=== PATIENT | female | born 1950 | race Caucasian/White ===

== ENCOUNTER 2018-12-01 21:20 | Emergency (ER) | payer MEDICARE ==
[~2018-12-01] VITALS: Ht 167.6 cm; Wt 113.6 kg
[2018-12-01] MEDS ORDERED: CELEBREX100 M1 PO (21:51)
[2018-12-01] MEDS ORDERED: ZESTRIL10 M1 PO (21:51)
[2018-12-01 22:22] LABS: HEMATOCRIT 42.2 % (37.0-47.0); HEMOGLOBIN 13.8 g/dl (12.0-16.0); IMMATURE GRANULOCYTES 0.3 % (0.0-5.0); MEAN CELL VOLUME 97.2 fL CALC (80.0-100.0); MEAN CORPUSCULAR HGB 31.8 pG CALC (26.0-32.0); MEAN CORPUSCULAR HGB CONC 32.7 g/L CALC (32.0-36.0); NEUT# 8.59 thou/uL (2.00-7.15); RED BLOOD COUNT 4.34 mill/uL (4.20-5.60)
[2018-12-01 22:43] LABS: ACT PARTIAL THROMBO TIME 27.1 SECONDS (20.0-32.5); D-DIMER 2.12 mg/L (0.19-0.60); INTERNATIONAL NORMALIZED RATIO 1.6 RATIO (0.7-1.3); PROTHROMBIN TIME 16.3 SECONDS (9.0-12.5)
[2018-12-01 22:46] LABS: ALBUMIN 4.7 g/dL (3.2-5.0); ANION GAP 15 (6-22 (CALC)); BILIRUBIN, TOTAL 0.7 mg/dL (0.0-1.4); BUN 12 mg/dL (8-23); BUN/CREATININE RATIO 23 (12-20 (CALC)); CARBON DIOXIDE 29 mmol/l (22-30); CHLORIDE 99 mmol/l (95-108); CREATININE 0.5 mg/dL (0.5-1.0); GFR > 60 ML/MIN (>=60 (CALC)); GFR FOR AFR.AMER. > 60 ML/MIN (>=60 (CALC)); POTASSIUM 4.2 mmol/l (3.5-5.1); SODIUM 139 mmol/l (137-146); TOTAL PROTEIN 8.5 g/dL (6.3-8.2)
[2018-12-01 22:50] LABS: ALKALINE PHOSPHATASE 125 u/l (38-126); SGOT/AST 31 u/l (9-36)
[2018-12-01 22:58] LABS: MYOGLOBIN 17 ng/mL (0 - 62)
[2018-12-01] MEDS ORDERED: PREDNISONE50 MG PO (23:53)
[2018-12-01] MEDS ORDERED: TRAMADOL HCL50 MG PO (23:53)
[2018-12-02 00:10] VITALS: BP 108/55
== END 2018-12-02 00:10 | disposition home or self-care (01) ==
LOC: ED 21:20
PROVIDERS: Family Medicine
DX: R07.81 Pleurodynia (principal); I10 Essential (primary) hypertension; Z91.013 Allergy to seafood
CPT/HCPCS: J1650

== ENCOUNTER 2018-12-05 11:27 | Observation (INO) | payer MEDICARE ==
[~2018-12-05] VITALS: Ht 170.2 cm; Wt 114.1 kg
[2018-12-05] VITALS (15 sets, daily range): BP systolic 126–179; BP diastolic 64–95
[~2018-12-05 11:27] MED LIST: CELEBREX100 M1 PO; PREDNISONE50 MG PO; TRAMADOL HCL50 MG PO; ZESTRIL10 M1 PO
[2018-12-05 13:51] LABS: ALBUMIN 4.5 g/dL (3.2-5.0); ALKALINE PHOSPHATASE 116 u/l (38-126); ANION GAP 15 (6-22 (CALC)); BUN 18 mg/dL (8-23); BUN/CREATININE RATIO 34 (12-20 (CALC)); CARBON DIOXIDE 28 mmol/l (22-30); CHLORIDE 105 mmol/l (95-108); CREATININE 0.5 mg/dL (0.5-1.0); GFR > 60 ML/MIN (>=60 (CALC)); GFR FOR AFR.AMER. > 60 ML/MIN (>=60 (CALC)); POTASSIUM 4.3 mmol/l (3.5-5.1); SGOT/AST 18 u/l (9-36); SODIUM 144 mmol/l (137-146); TOTAL PROTEIN 8.1 g/dL (6.3-8.2)
[2018-12-05 13:57] LABS: BILIRUBIN, TOTAL 0.4 mg/dL (0.0-1.4)
[2018-12-05] MEDS ORDERED: MULTIVITAMI1 PO (14:33)
[2018-12-06] VITALS (13 sets, daily range): BP systolic 114–142; BP diastolic 53–71
[2018-12-06 05:46] LABS: HEMATOCRIT 43.4 % (37.0-47.0); IMMATURE GRANULOCYTES 0.9 % (0.0-5.0); MEAN CELL VOLUME 98.4 fL CALC (80.0-100.0); MEAN CORPUSCULAR HGB 31.7 pG CALC (26.0-32.0); MEAN CORPUSCULAR HGB CONC 32.3 g/L CALC (32.0-36.0); NEUT# 5.76 thou/uL (2.00-7.15); RED BLOOD COUNT 4.41 mill/uL (4.20-5.60); RED CELL DISTRI WIDTH 13.2 % (11.5-15.5)
[2018-12-06 06:02] LABS: ALBUMIN 4.1 g/dL (3.2-5.0); ALKALINE PHOSPHATASE 112 u/l (38-126); ANION GAP 15 (6-22 (CALC)); BUN 17 mg/dL (8-23); BUN/CREATININE RATIO 32 (12-20 (CALC)); CALCULATED LDLCHOLESTEROL 81 mg/dL (62-129 (CALC)); CARBON DIOXIDE 26 mmol/l (22-30); CHLORIDE 105 mmol/l (95-108); CHOLESTEROL HDL RATIO 2.4 (<4.4 (CALC)); CREATININE 0.5 mg/dL (0.5-1.0); GFR > 60 ML/MIN (>=60 (CALC)); GFR FOR AFR.AMER. > 60 ML/MIN (>=60 (CALC)); HDL CHOLESTEROL 80 mg/dL (>=40); POTASSIUM 4.2 mmol/l (3.5-5.1); SODIUM 143 mmol/l (137-146); TOTAL CHOLESTEROL 189 mg/dl (0-199); TOTAL PROTEIN 7.2 g/dL (6.3-8.2); TOTAL TRIGLYCERIDES 140 mg/dl (30-149); VLDL CHOLESTROL 28 mg/dl (1-41 (CALC))
[2018-12-06 06:31] LABS: BILIRUBIN, TOTAL 0.6 mg/dL (0.0-1.4); SGOT/AST 34 u/l (9-36)
[2018-12-07] VITALS: BP 146/61
[2018-12-07 04:00] VITALS: BP 125/64
[2018-12-07 04:29] LABS: HEMATOCRIT 38.8 % (37.0-47.0); HEMOGLOBIN 12.4 g/dl (12.0-16.0); IMMATURE GRANULOCYTES 0.8 % (0.0-5.0); MEAN CORPUSCULAR HGB 31.6 pG CALC (26.0-32.0); NEUT# 5.28 thou/uL (2.00-7.15); RED BLOOD COUNT 3.92 mill/uL (4.20-5.60); RED CELL DISTRI WIDTH 13.5 % (11.5-15.5)
[2018-12-07 05:42] LABS: ALBUMIN 3.3 g/dL (3.2-5.0); ALKALINE PHOSPHATASE 90 u/l (38-126); ANION GAP 12 (6-22 (CALC)); BILIRUBIN, TOTAL 0.5 mg/dL (0.0-1.4); BUN 21 mg/dL (8-23); BUN/CREATININE RATIO 39 (12-20 (CALC)); CARBON DIOXIDE 25 mmol/l (22-30); CHLORIDE 105 mmol/l (95-108); CREATININE 0.5 mg/dL (0.5-1.0); GFR > 60 ML/MIN (>=60 (CALC)); GFR FOR AFR.AMER. > 60 ML/MIN (>=60 (CALC)); POTASSIUM 4.4 mmol/l (3.5-5.1); SGOT/AST 17 u/l (9-36); SODIUM 138 mmol/l (137-146); TOTAL PROTEIN 5.9 g/dL (6.3-8.2)
[2018-12-07 07:00] VITALS: BP 146/88
[2018-12-07 08:14] VITALS: BP 146/88
[2018-12-07] MEDS ORDERED: XARELTO15 MG PO (08:31)
== END 2018-12-07 10:00 | disposition home or self-care (01) ==
LOC: ICU 11:27
PROVIDERS: ADMIT Internal Medicine Geriatric Medicine; ATTEND Internal Medicine Geriatric Medicine
DX: I26.99 Other pulmonary embolism without acute cor pulmonale (principal); I10 Essential (primary) hypertension; M19.90 Unspecified osteoarthritis, unspecified site; Z91.013 Allergy to seafood
CPT/HCPCS: A9540; A9567; J1644

== ENCOUNTER 2019-08-24 15:17 | Observation (INO) | payer MEDICARE ==
[~2019-08-24] VITALS: Ht 170.2 cm; Wt 116.0 kg
[~2019-08-24 15:17] MED LIST changes: +MULTIVITAMI1 PO; +XARELTO15 MG PO
--- NOTE | 2019-08-24 15:25 | NUR ---
TO ROOM VIA EMS FOR BEDSIDE TRIAGE
[2019-08-24 16:03] LABS: HEMATOCRIT 41.9 % (37.0-47.0); IMMATURE GRANULOCYTES 0.2 % (0.0-5.0); MEAN CELL VOLUME 95.7 fL CALC (80.0-100.0); MEAN CORPUSCULAR HGB CONC 33.4 g/L CALC (32.0-36.0); NEUT# 6.29 thou/uL (2.00-7.15); RED BLOOD COUNT 4.38 mill/uL (4.20-5.60); RED CELL DISTRI WIDTH 13.4 % (11.5-15.5)
[2019-08-24 16:10] LABS: ACT PARTIAL THROMBO TIME 34.8 SECONDS (20.0-32.5); INTERNATIONAL NORMALIZED RATIO 1.2 RATIO (0.7-1.3); PROTHROMBIN TIME 12.1 SECONDS (9.0-12.5)
[2019-08-24 16:28] LABS: ALKALINE PHOSPHATASE 78 u/l (38-126); ANION GAP 12 (6-22 (CALC)); BILIRUBIN, TOTAL 0.6 mg/dL (0.0-1.4); BUN 19 mg/dL (8-23); BUN/CREATININE RATIO 32 (12-20 (CALC)); CARBON DIOXIDE 28 mmol/l (22-30); CHLORIDE 102 mmol/l (95-108); CREATININE 0.6 mg/dL (0.5-1.0); GFR > 60 ML/MIN (>=60 (CALC)); GFR FOR AFR.AMER. > 60 ML/MIN (>=60 (CALC)); POTASSIUM 3.6 mmol/l (3.5-5.1); SODIUM 139 mmol/l (137-146)
[2019-08-24 16:29] LABS: ALBUMIN 4.5 g/dL (3.2-5.0); SGOT/AST 32 u/l (9-36); TOTAL PROTEIN 8.1 g/dL (6.3-8.2)
[2019-08-24 17:36] LABS: TSH, 3RD GENERATION 2.19 uIU/mL (0.47 - 4.68)
--- NOTE | 2019-08-24 18:32 | NUR ---
REPORT CALLED TO YADIRA GRAHAM
--- NOTE | 2019-08-24 18:38 | NUR ---
PT TRANSFERRED TO MED SURG ON TELE VIA WHEELCHAIR.
[2019-08-24 18:40] VITALS: BP 127/73
--- NOTE | 2019-08-24 18:40 | NUR ---
PT ARRIVES TO ROOM 279 FROM ER, ALERT AND ORIENTED X 3. CALL BUTCHER LEFT WITH PT AFTER INSTRUCTIONS FOR USE.
--- NOTE | 2019-08-24 19:00 | NUR ---
REPORT FROM YADIRA GRAHAM. PT ALERT AND ORIENTED, SITTING UP IN BED. NO APPARENT DISTRESS NOTED. PT DENIES ANY PAIN OR PALPITATIONS. IV SITE APPEARS HEALTHY. YARN CONDITIONER IN PLACE. DISCUSSED POC. PT VERBALIZED UNDERSTANDING. PHONE HOT PUNCH PRESS OPERATOR AND MEAL PROVIDED TO PT AT THIS TIME. CALL LIGHT WITHIN REACH. WILL CONTINUE TO MONITOR.
--- NOTE | 2019-08-24 23:16 | NUR ---
PT RESTING IN BED WITH EYES CLOSED. NO APPARENT DISTRESS NOTED. CALL LIGHT WITHIN REACH. WILL CONTINUE TO MONITOR.
[2019-08-25 00:14] VITALS: BP 116/62
--- NOTE | 2019-08-25 03:25 | NUR ---
PT RESTING IN BED WITH EYES CLOSED. NO APPARENT DISTRESS NOTED. CALL LIGHT WITHIN REACH. WILL CONTINUE TO MONITOR.
[2019-08-25 04:10] VITALS: BP 124/63
[2019-08-25 06:13] LABS: CHOLESTEROL HDL RATIO 3.3 (<4.4 (CALC)); MAGNESIUM 1.9 mg/dL (1.6-2.3)
[2019-08-25 07:14] VITALS: BP 112/65
--- NOTE | 2019-08-25 07:50 | NUR ---
PATIENT A/OX4, NO S/S RESP DISTRESS, PATIENT ON ROOM AIR, NO C/O PAIN, PATIENT NO C/O CHEST PAIN NO C/O PALPITATION, PATIENT HEART RHYTHM IN NORMAL SINUS, PATIENT UP AB LIP, LAST BOWEL MOVEMENT, WILL CONTINUE TO MONITOR, CALL LIGHT WITHIN REACH
[2019-08-25] MEDS ORDERED: XARELTO20 MG PO (10:47)
[2019-08-25] MEDS ORDERED: SINGULAIR10 MG PO (10:52)
[2019-08-25] MEDS ORDERED: B-12 COMPL1000 MCG/M SC (10:55)
[2019-08-25] MEDS ORDERED: HYDROCHLOROT25 MG PO (10:56)
[2019-08-25 10:57] VITALS: BP 131/78
[2019-08-25] MEDS ORDERED: TENORMIN25 MG PO (11:09)
--- NOTE | 2019-08-25 12:00 | NUR ---
PATIENT A/OX4, NO C/O PAIN, NO CHEST PAIN, PATIENT NO S/S RESP DISTRESS, PATIENT ON ROOM AIR, PATIENT HEART RHYTHM IN NORMAL SINUS WITH PVC, PATIENT UP AB ALPHONSO, PATIENT LAST BOWEL MOVEMENT 08/24/19, WILL CONTINUE TO MONITOR PATIENT, CALL LIGHT WITHIN REACH
--- NOTE | 2019-08-25 14:00 | NUR ---
PATIENT A/OX4, NO C/O PAIN, NO C/O PALPITATIONS OF CHEST PAIN, PATIENT NO S/S RESP DISTRESS, PATIENT ON ROOM AIR, PATIENT HEART RHYTHM NORMAL SINUS, PATIENT DISCHARGED TO HOME, EDUCATED PATIENT ABOUT DC INSTRUCTIONS PATIENT STATED SHE UNDERSTOOD TEACHING, EDUCATED PATIENT ABOUT NEW MEDICATION ATENOLOL, INFORM PATIENT TO STOP TAKING HCTZ PER MD NEW ORDERS, PRINTED HANDOUT ABOUT ATENOLOL GIVEN TO PATIENT PATIENT STATED SHE UNDERSTOOD SIDE EFFECTS AND INDICATIONS OF NEW MED, ALSO PROVIDED PATIENT WITH PRINTED HANDOUTS WITH DC INSTRUCTIONS, REMOVED PATIENT IV, STAFF ASSISTED PATIENT OFF FLOOR VIA WHEELCHAIR, PATIENT ACCOMPANIED BY FAMILY MEMBER
== END 2019-08-25 14:05 | disposition home or self-care (01) ==
LOC: ED 15:17 → ED-I 16:50 → ED 16:50 → MS2 18:05
PROVIDERS: Emergency Medicine; ADMIT Internal Medicine; ATTEND Internal Medicine
DX: I49.3 Ventricular premature depolarization (principal); I10 Essential (primary) hypertension; Z86.711 Personal history of pulmonary embolism; Z79.01 Long term (current) use of anticoagulants
CPT/HCPCS: G0378